=== PATIENT | female | born 1995 | race Caucasian/White ===

== ENCOUNTER 2017-10-03 21:41 | Emergency (ER) | payer MEDICAID ==
[~2017-10-03] VITALS: Ht 154.9 cm; Wt 49.0 kg
[~2017-10-03 21:41] MED LIST: NITR100C11 PO; NITR100C6 PO
[2017-10-03 21:54] VITALS: BP 119/88
== END 2017-10-04 01:26 | disposition left against medical advice (07) ==
LOC: ER 21:43
DX: K08.89 Other specified disorders of teeth and supporting structures (principal); Z53.21 Procedure and treatment not carried out due to patient leaving prior to being seen by health care provider

== ENCOUNTER 2017-10-04 05:48 | Emergency (ER) | payer MEDICAID ==
[2017-10-04 05:52] VITALS: BP 119/81
[2017-10-04 07:23] LABS: CLARITY,URINE SLIGHTLY CLOUDY (Clear); COLOR,URINE YELLOW (Yellow); GLUCOSE, URINE NEGATIVE (Neg); KETONES,URINE NEGATIVE (Neg); LEUKOCYTE ESTERASE ,URINE SMALL (Neg); NITRITES, URINE NEGATIVE (Neg); OCCULT BLOOD,URINE SMALL (Neg); PROTEIN,URINE TRACE mg/dl (Neg); UROBILINOGEN,URINE 0.2 E.U/dL (0.2-1.0)
[2017-10-04 07:24] LABS: UA COLLECTION TYPE CLN CATCH MIDSTREAM
[2017-10-04 07:27] LABS: URINE HCG NEGATIVE (NEG)
[2017-10-04 07:31] LABS: BACTERIA,URINE 2+ /HPF (Neg); MUCUS STRANDS NONE SEEN /LPF (Neg); SQUAMOUS EPITHELIAL CELL,UR MANY /LPF (FEW); YEAST FEW /HPF (NEGATIVE)
== END 2017-10-04 08:56 | disposition left against medical advice (07) ==
LOC: ER 05:48
DX: N89.8 Other specified noninflammatory disorders of vagina (principal); Z53.21 Procedure and treatment not carried out due to patient leaving prior to being seen by health care provider
CPT/HCPCS: 36415; 81001; 81025; 87491; 99281

== ENCOUNTER 2021-03-25 15:22 | Emergency (ER) | payer MEDICAID ==
[~2021-03-25] VITALS: Ht 152.4 cm; Wt 50.9 kg
[2021-03-25 15:27] VITALS: BP 107/77
[2021-03-25 16:07] LABS: URINE HCG NEGATIVE (NEG)
[2021-03-25 16:19] LABS: CLARITY,URINE TURBID (Clear); COLOR,URINE STRAW (Yellow); UA COLLECTION TYPE VOIDED
[2021-03-25] MEDS ORDERED: CefTRIAXone 1000mg IM Kit (w/lidocaine diluent) IM STA (16:19)
[2021-03-25 16:20] LABS: GLUCOSE, URINE NEGATIVE (Neg); KETONES,URINE NEGATIVE (Neg); LEUKOCYTE ESTERASE ,URINE MODERATE (Neg); NITRITES, URINE NEGATIVE (Neg); OCCULT BLOOD,URINE NEGATIVE (Neg); PROTEIN,URINE NEGATIVE (Neg); UROBILINOGEN,URINE 0.2 E.U/dL (0.2-1.0)
[2021-03-25] MEDS ORDERED: DOXY-411 PO (16:20)
[2021-03-25 16:21] LABS: SQUAMOUS EPITHELIAL CELL,UR MANY /LPF (FEW)
[2021-03-25 16:22] LABS: AMORPHOUS PHOSPHATES 4+; MUCUS STRANDS MANY /LPF (Neg)
[2021-03-25 16:24] LABS: BACTERIA,URINE 4+ /HPF (Neg)
[2021-03-25 16:26] LABS: RBC,URINE 0-2 /HPF (0-2)
[2021-03-25] MEDS ORDERED: METR-159 PO (16:26)
== END 2021-03-25 16:38 | disposition home or self-care (01) ==
LOC: ER 15:23
DX: A64 Unspecified sexually transmitted disease (principal); J45.909 Unspecified asthma, uncomplicated; F41.9 Anxiety disorder, unspecified; F15.10 Other stimulant abuse, uncomplicated; F14.10 Cocaine abuse, uncomplicated; Z56.0 Unemployment, unspecified; Z88.0 Allergy status to penicillin; Z79.899 Other long term (current) drug therapy
CPT/HCPCS: 36415; 81001; 81025; 86592; 87210; 87491; 87591; 96372; 99284; J0696; 99283

== ENCOUNTER 2021-08-07 15:38 | Emergency (ER) | payer SELFPAY ==
[~2021-08-07] VITALS: Ht 152.4 cm; Wt 50.0 kg
[~2021-08-07 15:38] MED LIST changes: +DOXYCYCLINE 100MG CAPSULE PO ONE
[2021-08-07 16:18] LABS: URINE HCG NEGATIVE (NEG)
[2021-08-07 16:21] LABS: CLARITY,URINE SLIGHTLY CLOUDY (Clear); COLOR,URINE YELLOW (Yellow); GLUCOSE, URINE NEGATIVE (Neg); KETONES,URINE NEGATIVE (Neg); LEUKOCYTE ESTERASE ,URINE NEGATIVE (Neg); NITRITES, URINE NEGATIVE (Neg); OCCULT BLOOD,URINE NEGATIVE (Neg); PROTEIN,URINE NEGATIVE (Neg); UA COLLECTION TYPE VOIDED; UROBILINOGEN,URINE 0.2 E.U/dL (0.2-1.0)
[2021-08-07 16:26] LABS: BACTERIA,URINE 1+ /HPF (Neg); MUCUS STRANDS MODERATE /LPF (Neg); RBC,URINE NONE SEEN /HPF (0-2); SQUAMOUS EPITHELIAL CELL,UR MODERATE /LPF (FEW); WBC,URINE 0-4 /HPF (0-4)
[2021-08-07 16:26] LABS: BASOPHILS % (AUTO) 0.4 % (0-1); EOSINOPHILS # (AUTO) 0.2 X10'3 (0-0.9); EOSINOPHILS % (AUTO) 2.2 % (0-6); HEMATOCRIT 40.5 % (35.0-45.0); HEMOGLOBIN 14.1 g/dl (12.0-16.0); LYMPHOCYTES # (AUTO) 2.3 X10'3 (1.1-4.8); LYMPHOCYTES % (AUTO) 29.8 % (21-51); MEAN CORPUSCULAR HEMOGLOBIN 32.7 PG (27.0-31.0); MEAN CORPUSCULAR HGB CONC 34.7 g/dL (33.0-36.5); MEAN CORPUSCULAR VOLUME 94.2 FL (78-98); MEAN PLATELET VOLUME 7.1 FL (7.4-10.4); MONOCYTES # (AUTO) 0.6 X10'3 (0-0.9); MONOCYTES % (AUTO) 8.1 % (2-12); NEUTROPHILS # (AUTO) 4.6 X10'3 (1.8-7.7); NEUTROPHILS % (AUTO) 59.5 % (42-75); PLATELET COUNT 250 X10'3 (140-440); RED CELL DISTRIBUTION WIDTH 12.3 % (11.5-14.5); WHITE BLOOD COUNT 7.7 X10'3 (4.5-11.0)
[2021-08-07 16:38] LABS: ALANINE AMINOTRANSFERASE 59 U/L (12-78); ALBUMIN 3.9 G/DL (3.4-5.0); ALBUMIN/GLOBULIN RATIO 1.1 (1.1-1.5); ALKALINE PHOSPHATASE 52 IU/L (46-116); ANION GAP 6 (8-16); ASPARTATE AMINO TRANSFERASE 31 U/L (10-37); BILIRUBIN,TOTAL 0.2 MG/DL (0.1-1.0); BLOOD UREA NITROGEN 14 MG/DL (7-18); BUN/CREATININE RATIO 15.6 (6.6-38.0); CALCIUM 8.6 MG/DL (8.5-10.1); CHLORIDE 105 MMOL/L (99-107); GLUCOSE 80 MG/DL (70-104); LIPASE 132 U/L (73-393); POTASSIUM 4.3 MMOL/L (3.5-5.1); SODIUM 139 MMOL/L (135-145); TOTAL CARBON DIOXIDE 28.5 MMOL/L (24-32); TOTAL PROTEIN 7.6 G/DL (6.4-8.2); eGFR 76 ML/MIN
[2021-08-07] MEDS ORDERED: CefTRIAXone 1000mg IM Kit (w/lidocaine diluent) IM ONE (18:00)
[2021-08-07] MEDS ORDERED: DOXYCYCLINE 100MG CAPSULE PO ONE (18:11)
[2021-08-07] MEDS ORDERED: DOXY100T56 PO (18:31)
[2021-08-07 18:44] VITALS: BP 118/68
== END 2021-08-07 18:46 | disposition home or self-care (01) ==
LOC: ER 15:39
DX: A64 Unspecified sexually transmitted disease (principal); J45.909 Unspecified asthma, uncomplicated; F15.90 Other stimulant use, unspecified, uncomplicated; F11.90 Opioid use, unspecified, uncomplicated; Z87.440 Personal history of urinary (tract) infections; Z56.0 Unemployment, unspecified; Z88.0 Allergy status to penicillin; Z79.2 Long term (current) use of antibiotics; Z79.899 Other long term (current) drug therapy
CPT/HCPCS: 36415; 80053; 81001; 81025; 83690; 85025; 96372; 99283; J0696

== ENCOUNTER 2024-06-08 11:19 | Emergency (ER) | payer MEDICAID ==
[~2024-06-08] VITALS: Ht 154.9 cm; Wt 55.4 kg
[~2024-06-08 11:19] MED LIST changes: -DOXYCYCLINE 100MG CAPSULE PO ONE
[2024-06-08 11:27] VITALS: BP 126/79; PULSE 94; RESP 16; TEMP 98.1; O2SAT 98
[2024-06-08 14:41] LABS: STREP A SCREEN NEGATIVE (Neg)
[2024-06-08] MEDS ORDERED: PRED20TA PO (15:02)
== END 2024-06-08 15:14 | disposition home or self-care (01) ==
LOC: ER 11:20
DX: J02.9 Acute pharyngitis, unspecified (principal); J45.909 Unspecified asthma, uncomplicated; F41.9 Anxiety disorder, unspecified; F15.90 Other stimulant use, unspecified, uncomplicated; F11.90 Opioid use, unspecified, uncomplicated; Z88.0 Allergy status to penicillin
CPT/HCPCS: 87081; 87880; 99283

== ENCOUNTER 2024-07-01 18:37 | Emergency (ER) | payer MEDICAID ==
[~2024-07-01] VITALS: Ht 154.9 cm; Wt 56.0 kg
[~2024-07-01 18:37] MED LIST changes: +PRED20TA PO
[2024-07-01 18:56] VITALS: TEMP 99.1
[2024-07-01 19:35] LABS: ALANINE AMINOTRANSFERASE 16 U/L (12-78); ALBUMIN 4.1 G/DL (3.4-5.0); ALKALINE PHOSPHATASE 76 IU/L (46-116); ANION GAP 6 (8-16); ASPARTATE AMINO TRANSFERASE 14 U/L (10-37); BILIRUBIN,TOTAL 0.3 MG/DL (0.1-1.0); BLOOD UREA NITROGEN 14 MG/DL (7-18); BUN/CREATININE RATIO 16.7 (10.0-20.0); CALCIUM 9.4 MG/DL (8.5-10.1); CHLORIDE 102 MMOL/L (99-107); CREATININE 0.84 MG/DL (0.40-0.90); GLUCOSE 116 MG/DL (70-104); LIPASE 56 U/L (16-77); POTASSIUM 3.8 MMOL/L (3.5-5.1); SODIUM 139 MMOL/L (135-145); TOTAL CARBON DIOXIDE 30.7 MMOL/L (24-32); TOTAL PROTEIN 8.4 G/DL (6.4-8.2); eCRCL 75 ML/MIN; eGFR 81 ML/MIN
[2024-07-01 19:42] LABS: BILIRUBIN,URINE NEGATIVE (Neg); CLARITY,URINE SLIGHTLY CLOUDY (Clear); COLOR,URINE YELLOW (Yellow); GLUCOSE, URINE NEGATIVE (Neg); KETONES,URINE NEGATIVE (Neg); LEUKOCYTE ESTERASE ,URINE NEGATIVE (Neg); NITRITES, URINE NEGATIVE (Neg); OCCULT BLOOD,URINE NEGATIVE (Neg); PH,URINE 5.5 (4.8-8.0); PROTEIN,URINE NEGATIVE (Neg); UROBILINOGEN,URINE 0.2 E.U/dL (0.2-1.0)
[2024-07-01 19:44] LABS: URINE HCG NEGATIVE (NEG)
[2024-07-01 19:48] LABS: UA COLLECTION TYPE CLN CATCH MIDSTREAM
[2024-07-01 19:50] LABS: BACTERIA,URINE 3+ /HPF (Neg); RBC,URINE NONE SEEN /HPF (0-2); SQUAMOUS EPITHELIAL CELL,UR MANY /LPF (FEW); WBC,URINE 0-4 /HPF (0-4)
[2024-07-01 19:57] LABS: BASOPHILS % (AUTO) 0.4 % (0-1); EOSINOPHILS # (AUTO) 0.2 X10'3 (0-0.9); EOSINOPHILS % (AUTO) 2.4 % (0-6); HEMATOCRIT 42.2 % (35.0-45.0); HEMOGLOBIN 14.9 g/dl (12.0-16.0); LYMPHOCYTES # (AUTO) 2.4 X10'3 (1.1-4.8); LYMPHOCYTES % (AUTO) 24.5 % (21-51); MEAN CORPUSCULAR HEMOGLOBIN 33.4 PG (27.0-31.0); MEAN CORPUSCULAR HGB CONC 35.3 g/dL (33.0-36.5); MEAN CORPUSCULAR VOLUME 94.7 FL (78-98); MEAN PLATELET VOLUME 7.8 FL (7.4-10.4); MONOCYTES # (AUTO) 0.6 X10'3 (0-0.9); NEUTROPHILS # (AUTO) 6.4 X10'3 (1.8-7.7); NEUTROPHILS % (AUTO) 66.7 % (42-75); PLATELET COUNT 270 X10'3 (140-440); RED BLOOD COUNT 4.46 X10'6 (4.20-5.60); RED CELL DISTRIBUTION WIDTH 12.3 % (11.5-14.5); WHITE BLOOD COUNT 9.6 X10'3 (4.5-11.0)
[2024-07-01 20:54] VITALS: PULSE 89
[2024-07-01] MEDS: azithromycin 250mg tablet PO ONE (22:02)
[2024-07-01] MEDS: CefTRIAXone/D5W-Rocephin 1gm 50 ML IV ONE (22:02)
[2024-07-01] MEDS ORDERED: iohexol 300mg/ml 100ml inj. ONE (22:08)
[2024-07-01] MEDS: metroNIDAZOLE 500mg tablet PO ONE (23:53)
[2024-07-02 00:02] VITALS: BP 111/62; RESP 18; O2SAT 99
== END 2024-07-02 00:07 | disposition home or self-care (01) ==
LOC: ER 18:37
DX: A64 Unspecified sexually transmitted disease (principal); R10.31 Right lower quadrant pain; R10.2 Pelvic and perineal pain; J45.909 Unspecified asthma, uncomplicated; F41.9 Anxiety disorder, unspecified; F17.210 Nicotine dependence, cigarettes, uncomplicated; F12.90 Cannabis use, unspecified, uncomplicated; Z88.0 Allergy status to penicillin; F15.90 Other stimulant use, unspecified, uncomplicated
CPT/HCPCS: 36415; 74177; 80053; 81001; 81025; 83690; 85025; 96365; 99285; J0696; Q9967

== ENCOUNTER 2024-10-11 18:23 | Emergency (ER) | payer MEDICAID ==
[~2024-10-11] VITALS: Ht 154.9 cm; Wt 138.8 kg
[~2024-10-11 18:23] MED LIST changes: -PRED20TA PO
[2024-10-11 19:10] LABS: ALANINE AMINOTRANSFERASE 11 U/L (12-78); ALBUMIN 3.1 G/DL (3.4-5.0); ALBUMIN/GLOBULIN RATIO 0.8 (1.1-1.5); ALKALINE PHOSPHATASE 60 IU/L (46-116); ANION GAP 7 (8-16); ASPARTATE AMINO TRANSFERASE 14 U/L (10-37); BILIRUBIN,TOTAL 0.3 MG/DL (0.1-1.0); BLOOD UREA NITROGEN 9 MG/DL (7-18); CALCIUM 8.4 MG/DL (8.5-10.1); CHLORIDE 105 MMOL/L (99-107); GLUCOSE 136 MG/DL (70-104); LIPASE 37 U/L (16-77); POTASSIUM 3.8 MMOL/L (3.5-5.1); SODIUM 137 MMOL/L (135-145); TOTAL CARBON DIOXIDE 25.3 MMOL/L (24-32); TOTAL PROTEIN 6.8 G/DL (6.4-8.2); eCRCL 105 ML/MIN; eGFR > 90 ML/MIN
[2024-10-11 20:29] LABS: BILIRUBIN,URINE NEGATIVE (Neg); CLARITY,URINE SLIGHTLY CLOUDY (Clear); COLOR,URINE YELLOW (Yellow); GLUCOSE, URINE NEGATIVE (Neg); KETONES,URINE NEGATIVE (Neg); LEUKOCYTE ESTERASE ,URINE MODERATE (Neg); NITRITES, URINE NEGATIVE (Neg); OCCULT BLOOD,URINE TRACE-INTACT (Neg); PROTEIN,URINE NEGATIVE (Neg); UROBILINOGEN,URINE 0.2 E.U/dL (0.2-1.0)
[2024-10-11 20:32] LABS: URINE HCG POSITIVE (NEG)
[2024-10-11 20:35] LABS: UA COLLECTION TYPE VOIDED
[2024-10-11 20:38] LABS: BASOPHILS % (AUTO) 0.1 % (0-1); EOSINOPHILS # (AUTO) 0.2 X10'3 (0-0.9); EOSINOPHILS % (AUTO) 1.6 % (0-6); HEMATOCRIT 37.6 % (35.0-45.0); LYMPHOCYTES # (AUTO) 1.8 X10'3 (1.1-4.8); LYMPHOCYTES % (AUTO) 13.1 % (21-51); MEAN CORPUSCULAR HEMOGLOBIN 32.3 PG (27.0-31.0); MEAN CORPUSCULAR HGB CONC 34.6 g/dL (33.0-36.5); MEAN CORPUSCULAR VOLUME 93.3 FL (78-98); MEAN PLATELET VOLUME 8.1 FL (7.4-10.4); MONOCYTES # (AUTO) 0.6 X10'3 (0-0.9); MONOCYTES % (AUTO) 4.6 % (2-12); NEUTROPHILS # (AUTO) 11.1 X10'3 (1.8-7.7); NEUTROPHILS % (AUTO) 80.6 % (42-75); PLATELET COUNT 219 X10'3 (140-440); RED BLOOD COUNT 4.02 X10'6 (4.20-5.60); RED CELL DISTRIBUTION WIDTH 12.4 % (11.5-14.5); WHITE BLOOD COUNT 13.8 X10'3 (4.5-11.0)
[2024-10-11 20:47] LABS: WBC,URINE 20-30 /HPF (0-4)
[2024-10-11 20:48] LABS: BACTERIA,URINE 1+ /HPF (Neg); MUCUS STRANDS FEW /LPF (Neg); RBC,URINE 0-2 /HPF (0-2); SQUAMOUS EPITHELIAL CELL,UR FEW /LPF (FEW)
--- NOTE | 2024-10-11 22:06 | Physician Documentation ---
History of Present Illness Chief Complaint: Abdominal Pain Stated Complaint: ABDOMINAL PAIN Time Seen by MD: 22:00 OK to notify your PCP?: Yes Primary Medical Doctor: [facility] Source: patient, RN/MD, RN notes reviewed, old records Mode of Arrival: POV Exam Limitations: no limitations HPI 28 old female, who is approximately three months , presents to the ED complaining of lower abdominal pain for the last two days. Pain is rated 7/10 at this time. She also describes severe constipation recently and pressure when she urinates. She was taken some stool softeners without improvement of constipation. She denies any nausea, vomiting, or fever. She was a history of urinary tract infections, previously treated with Macrobid. She is taking vitamins. Medication Reconciliation Allergies: Coded Allergies: Penicillins (Verified Allergy, Intermediate, HIVES, 10/11/24) Scheduled Cephalexin*Monohydrate* (Keflex*), 1 CAP PO BID Nitrofurantoin Monohyd/M-Cryst (Macrobid 100 mg Capsule), 1 CAP PO Q12H Nitrofurantoin/Nitrofuran Mac (Nitrofurantoin [place]-Mcr 100 Mg), 1 CAP PO BID Past Medical History Past Medical History: Asthma, UTI, *INFECTIOUS DZ*, Anxiety Past Surgical History: no surgical history Alcohol Use: None Drug Use: methamphetamine, heroin Lives with: S/O Lives In: Home Occupation: unemployed Review of Systems All Other Systems at this time: Reviewed and Negative ROS As stated above in the HPI, otherwise all systems are reviewed and negative. Physical Exam Vital Signs: RN Vital Signs have been reviewed: Yes, Heart Rate: 81, Respirat ory Rate: 16, BP: 97/53, Pulse Oximetry: 100, Weight: 138.820 Oxygen Flow Rate: 0 Pulse Oximetry Reflects: adequate oxygenation Physical Exam General: The patient is well developed, well nourished, nontoxic appearing and is in no acute distress. Skin: [place], warm and dry with no rashes. HEENT: Head was normocephalic and atraumatic. Chest: Clear to auscultation bilaterally without wheezes, rales or rhonchi. No accessory muscle use. No dullness to percussion. Heart: Rate regular and rhythmic. S1, S2. No murmurs. Palpation of the chest wall was normal. No rubs or thrills. Abdomen: Gravid abdomen. Soft, nontender. Positive bowel sounds. No guarding or rebound. Back: No CVA TTP bilaterally. Extremities: No cyanosis, clubbing or edema. The patient moves all extremities. Pulses were equal and symmetric. Neurologic: Motor and sensation grossly intact. Cranial nerves II-XII grossly intact. A & O x4. Psychologic: Normal mood and affect. No agitation. Progress Results/Orders Reviewed/noted all lab results: Yes Results/Orders Orders - SO MCGINNIS MD Straight Cath For Urine Sample (10/11/24 18:36) Cult Urine + [place] [address] (10/11/24 20:49) Completed Orders - SO MCGINNIS MD Hcg, Ur Ql (10/11/24 18:36) Cbc/Diff (10/11/24 18:36) BMP (10/11/24 18:36) Lipase (10/11/24 18:36) CMP (10/11/24 18:36) Ua W/Microscopic, Cult If Ind (10/11/24 20:15) Vital Signs 10/11/24 10/11/24 10/11/24 18:28 20:41 20:41 Pulse 92 81 Resp 20 16 B/P (MAP) 112/63 97/53 (68) Pulse Ox 100 100 O2 Flow Rate 0 0 Laboratory Tests Test 10/11/24 18:47 10/11/24 20:15 White Blood Count 13.8 H Red Blood Count 4.02 L Hemoglobin 13.0 Hematocrit 37.6 Mean Corpuscular Volume 93.3 Mean Corpuscular Hemoglobin 32.3 H Mean Corpuscular Hemoglobin Concent 34.6 Red Cell Distribution Width 12.4 Platelet Count 219 Mean Platelet Volume 8.1 Neutrophils (%) (Auto) 80.6 H Lymphocytes (%) (Auto) 13.1 L Monocytes (%) (Auto) 4.6 Eosinophils (%) (Auto) 1.6 Basophils (%) (Auto) 0.1 Neutrophils # (Auto) 11.1 H Lymphocytes # (Auto) 1.8 Monocytes # (Auto) 0.6 Eosinophils # (Auto) 0.2 Basophils # (Auto) 0.0 CBC Comment Sodium Level 137 Potassium Level 3.8 Chloride Level 105 Carbon Dioxide Level 25.3 Anion Gap 7 L Blood Urea Nitrogen 9 Creatinine 0.60 Estimated GFR/1.73 m2 > 90 BUN/Creatinine Ratio 15.0 Glucose Level 136 H Calcium Level 8.4 L Total Bilirubin 0.3 Aspartate Amino Transf (AST/SGOT) 14 Alanine Aminotransferase (ALT/SGPT) 11 L Alkaline Phosphatase 60 Total Protein 6.8 Albumin 3.1 L Globulin 3.7 Albumin/Globulin Ratio 0.8 L Lipase 37 Chemistry Comments Urine Specimen Description Voided Urine Color Yellow Urine Clarity Slightly cloudy Urine pH 6.0 Urine Specific [place] 1.020 Urine Protein Negative Urine Glucose (UA) Negative Urine Ketones Negative Urine Occult Blood Trace-intact Urine Nitrite Negative Urine Bilirubin Negative Urine Urobilinogen 0.2 Urine Leukocyte Esterase Moderate H Urine RBC 0-2 Urine WBC 20-30 H Urine Squamous Epithelial Cells Few Urine Bacteria 1+ Urine Mucus Few Urine Culture Indicated Indicated Volume Urine Centrifuged 10 ml Urine HCG, Qualitative Positive Urine Comment Microbiology Date/Time Source Procedure Growth Status 10/11/24 20:49 Urine Voided Urine Culture - Preliminary Culture received. Resulted Departure Time of Disposition: 22:15 Disposition: 01 HOME / SELF CARE / HOMELESS Impression: Primary Impression: UTI in Qualified Codes: O23.41 - Unspecified infection of urinary tract in , first trimester Condition: Stable Discharge Instructions: and Urinary Tract Infection Additional Instructions: Take full course of antibiotics as prescribed. Follow up with your OBGYN and regular doctor. Plenty of fluids. Return to the ER for worsening abdominal pain, abdominal cramping, fever, vomiting, or any other concerns. Prescriptions Cephalexin*Monohydrate* (Keflex*) 250 Mg Capsule 1 CAP PO BID for 7 Days, #14 CAP Prov: SO MCGINNIS MD 10/11/24 Education Educated: Patient, Family Educated regarding: diagnosis, treatment, need for follow up Signature Scribe Signature: Scribed for So Mcginnis MD by Luigi Spears . 10/11/24 22:10 Attestation: The note accurately reflects work and decisions made by me.So Mcginnis MD 10/11/24 22:06 SO MCGINNIS MD October 11, 2024 22:06 LUIGI TRAN October 11, 2024 22:15
[2024-10-11] MEDS ORDERED: CEPH250T PO (22:13)
[2024-10-11] MEDS: CefTRIAXone 1000mg IM Kit (w/lidocaine diluent) IM ONE (22:22)
[2024-10-11 22:23] VITALS: BP 131/78; PULSE 72; RESP 16; O2SAT 100
== END 2024-10-11 22:25 | disposition home or self-care (01) ==
LOC: ER 18:24
DX: O23.41 Unspecified infection of urinary tract in pregnancy, first trimester (principal); N39.0 Urinary tract infection, site not specified; J45.909 Unspecified asthma, uncomplicated; K59.00 Constipation, unspecified; F15.90 Other stimulant use, unspecified, uncomplicated; F11.90 Opioid use, unspecified, uncomplicated; F41.9 Anxiety disorder, unspecified; Z88.0 Allergy status to penicillin; Z79.899 Other long term (current) drug therapy; Z56.0 Unemployment, unspecified; Z3A.01 Less than 8 weeks gestation of pregnancy
CPT/HCPCS: 36415; 80053; 81001; 81025; 83690; 85025; 87088; 96372; 99283; J0696

== ENCOUNTER 2024-12-24 14:26 | Outpatient (CLI) | payer MEDICAID ==
--- NOTE | 2024-12-25 02:19 | RADIOLOGY REPORT ---
LIMITED SURVEY CLINICAL HISTORY: RELATED CONDITIONS, FIRST TRIMESTER COMPARISON: None TECHNIQUE: Grayscale, color flow and spectral Doppler imaging of the pelvis is performed. FINDINGS: Uterus measures approximately 10 x 5.5 x 6.4 cm. Intrauterine gestational sac is identified. Yolk sac is noted, however, a pole is not clearly visualized. Mean gestational sac diameter 1.5 cm. Th is would correspond to an approximately 5 week 5 day size gestation. Ultrasound estimated due date 08/21/2025. Hypoechoic structure adjacent to the gestational sac measuring approximately 6.6 x 1.2 cm most likely reflecting a subchorionic hematoma. The right ovary measures 2.6 x 1.7 x 1.4 cm. The left ovary measures 2.6 x 1.8 x 1.7 cm. Both ovarie s demonstrate dopplerable blood flow on spectral analysis. Trace free fluid in the cul-de-sac. IMPRESSION: Approximately 5 week, 5 day sized intrauterine gestational sac with a yolk sac. pole not identi fied at this time. Presumed large subchorionic hematoma. Differential diagnosis in the setting includes early viable as well as failure/in complete miscarriage. Recommend short-term interval follow-up as well as correlation with serial beta HCG testing. HS:Y
== END 2024-12-24 23:59 | disposition home or self-care (01) ==
LOC: RAD 14:26
PROVIDERS: ATTEND Family Medicine
DX: O26.91 Pregnancy related conditions, unspecified, first trimester (principal); Z3A.01 Less than 8 weeks gestation of pregnancy
CPT/HCPCS: 76801; 76817; 93976

== ENCOUNTER 2025-03-28 14:51 | Emergency (ER) | payer MEDICAID, SELFPAY ==
[~2025-03-28] VITALS: Ht 154.9 cm; Wt 58.2 kg
[2025-03-28 15:19] VITALS: BP 127/84; PULSE 86; RESP 16; TEMP 97.9; O2SAT 95
--- NOTE | 2025-03-28 16:32 | Physician Documentation ---
History of Present Illness ~ Chief Complaint: Abscess Stated Complaint: EAR PAIN Time Seen by MD: 15:42 Primary Medical Doctor: [facility] HPI This is a 28-year-old female that presents to the emergency department for evaluation of sores to various areas of her body. Wounds are not consistent with abscess at this time. Patient does have small pustules in a few other places and she would like to have evaluated also. Patient is a small pustules in the external ears and right of the ear canal 1 on her side and 1 just below her right gluteal fold. Patient reports he has an allergy to penicillin. Patient denies fever chills nausea vomiting diarrhea or any other symptoms at this time. Tetanus Within 5 Years: Yes Medication Reconciliation Allergies: Coded Allergies: Penicillins (Verified Allergy, Intermediate, HIVES, 03/28/25) Scheduled Nitrofurantoin Monohyd/M-Cryst (Macrobid 100 mg Capsule), 1 CAP PO Q12H Nitrofurantoin/Nitrofuran Mac (Nitrofurantoin [place]-Mcr 100 Mg), 1 CAP PO BID Past Medical History Past Medical History: Asthma, UTI, *INFECTIOUS DZ*, Anxiety Past Surgical History: no surgical history Alcohol Use: None Drug Use: methamphetamine, heroin Lives with: S/O Lives In: Home Occupation: unemployed Review of Systems ROS As stated above in the HPI, otherwise all systems are reviewed and negative. Physical Exam Vital Signs: Temperature: 97.9, Source: Temporal, Heart Rate: 86, Respiratory Rate: 16, BP: 127/84, Pulse Oximetry: 95, Weight: 58.200 Oxygen Flow Rate: 0 Physical Exam VITALS: Reviewed and as above. GENERAL: Alert, no apparent distress. SKIN: Warm and dry, multiple pustules mild rash to different areas of the body no significant erythema swelling or drainage noted at this time. NEURO: Oriented x4, No motor or sensory deficit PSYCH: Normal mood and affect, no agitation Progress Results/Orders Results/Orders Vital Signs 03/28/25 15:19 Temp 97.9 Pulse 86 Resp 16 B/P (MAP) 127/84 Pulse Ox 95 O2 Flow Rate 0 Medical Decision Making Additional information obtaine: other Findings This patient who presents with rash and multiple pustules throughout her body. History and exam findings not consistent with dangerous etiologies of rash such as SJS/TEN, or secondary dangerous causes such as petechial rashes from thrombocytopenia or rickettsial infections. Rash does not appear urticarial with no signs of anaphylaxis either. Plan at this time is to treat symptomatically, instruct to follow up with PCP or derm PRN. Patient will be prescribed course of clindamycin as she is allergic to penicillins. Patient will follow up with the primary care provider. Patient will return to the emergency department with any worsening or recurrent symptoms or any additional concerning symptoms that we discussed here today. Differential Dx:Considerations: Include: Abscess, Bacteremia, Cellulitis, Erysipelas, Felon, Gas gangrene, Hidrademitis suppurativa, Impetigo, Lymphangitis, Osteromyelitis, Paronychia, Septicemia, Other Departure Disposition: 01 HOME / SELF CARE / HOMELESS Impression: Primary Impression: Wound Additional Impressions: Rash Pustule Condition: Stable Discharge Instructions: Rash, Adult Additional Instructions: This patient who presents with rash and multiple pustules throughout her body. History and exam findings not consistent with dangerous etiologies of rash such as SJS/TEN, or secondary dangerous causes such as petechial rashes from thrombocytopenia or rickettsial infections. Rash does not appear urticarial with no signs of anaphylaxis either. Plan at this time is to treat symptomatically, instruct to follow up with PCP or derm PRN. Patient will be prescribed course of clindamycin as she is allergic to penicillins. Patient will follow up with the primary care provider. Patient will return to the emergency department with any worsening or recurrent symptoms or any additional concerning symptoms that we discussed here today. Referrals: NO PRIMARY CARE PROVIDER (PCP) Prescriptions Clindamycin HCl (Clindamycin HCl) 300 Mg Capsule 1 CAP PO Q8H for 10 Days, #30 CAP Prov: JULEE KARIMI 03/28/25 Education Educated: Patient Educated regarding: diagnosis, treatment, need for follow up Signature Scribe Signature: A Attestation: Scribed for Julee Karimi by NICOLE [email or web address] . 03/28/25 16:35 JULEE KARIMI Mar 28, 2025 16:32
[2025-03-28] MEDS ORDERED: CLIN300C54 PO (16:35)
== END 2025-03-28 16:44 | disposition home or self-care (01) ==
LOC: ER 14:51
DX: S00.401A Unspecified superficial injury of right ear, initial encounter (principal); J45.909 Unspecified asthma, uncomplicated; F15.90 Other stimulant use, unspecified, uncomplicated; F11.90 Opioid use, unspecified, uncomplicated; X58.XXXA Exposure to other specified factors, initial encounter; Y93.89 Activity, other specified; Y92.89 Other specified places as the place of occurrence of the external cause; Y99.8 Other external cause status
CPT/HCPCS: 99283

== ENCOUNTER 2025-05-13 13:26 | Emergency (ER) | payer MEDICAID ==
[~2025-05-13] VITALS: Ht 154.9 cm; Wt 54.0 kg
[2025-05-13 13:35] VITALS: BP 105/69; PULSE 90; RESP 14; TEMP 98.4; O2SAT 100
[2025-05-13] MEDS ORDERED: TRAZ-251 PO (14:08)
[2025-05-13] MEDS ORDERED: BUPR1FIL7 SL (14:08)
--- NOTE | 2025-05-13 14:09 | Physician Documentation ---
History of Present Illness ~ Chief Complaint: Narcotic Withdrawl Stated Complaint: DETOX Time Seen by MD: 13:39 Primary Medical Doctor: [facility] HPI 29-year-old female presents to the ED from [facility] as she is currently withdrawing from fentanyl. She stating she is requesting to be placed on Suboxone to bridge her in order to go back to [facility]. In addition she is requesting trazodone to help with sleeping. Not very forthcoming regarding her desire to come clean as she states she is uncomfortable. Day of Onset: May 13, 2025 Medication Reconciliation Allergies: Coded Allergies: Penicillins (Verified Allergy, Intermediate, HIVES, 05/13/25) Scheduled Buprenorphine HCl/Naloxone HCl (Suboxone 12 mg-3 mg Sl Film), 1 STRIP SL DAILY Nitrofurantoin Monohyd/M-Cryst (Macrobid 100 mg Capsule), 1 CAP PO Q12H Nitrofurantoin/Nitrofuran Mac (Nitrofurantoin [place]-Mcr 100 Mg), 1 CAP PO BID Trazodone HCl (Trazodone HCl), 1 TAB PO HS Past Medical History Past Medical History: Asthma, UTI, *INFECTIOUS DZ*, Anxiety Past Surgical History: no surgical history Alcohol Use: None Drug Use: methamphetamine, heroin Lives with: S/O Lives In: Home Occupation: unemployed Review of Systems All Other Systems at this time: Reviewed and Negative ROS As stated above in the HPI, otherwise all systems are reviewed and negative. Physical Exam Vital Signs: Temperature: 98.4, Heart Rate: 90, Respiratory Rate: 14, BP: 105/69, Pulse Oximetry: 100, Weight: 54.000 Physical Exam General: Alert, no apparent distress. HEENT: PERRL, EOMI, no injection, moist mucous membranes. Neck: Full range of motion. Respiratory: Lungs clear, no respiratory distress. Chest: No accessory muscle use. Cardiovascular: Regular rate and rhythm, no murmurs. Gastrointestinal: Soft, nontender, nondistended. Bowels sounds present. Extremities: Normal range of motion, no deformity. Neurologic: Oriented x4. Psychiatric: Normal mood and affect. Skin: Normal color, warm and dry. No edema, no ecchymosis. Progress Results/Orders Results/Orders Vital Signs 05/13/25 05/13/25 13:31 13:35 Temp 98.4 Pulse 100 90 Resp 12 14 B/P (MAP) 132/80 105/69 (81) Pulse Ox 100 100 Medical Decision Making Additional information obtaine: old records Findings Read to starting the patient on Suboxone but she will need to get further scripts in the outpatient setting. I will give her a short dose of trazodone as well. I am going to medically clear her for [facility] Differential Dx:Considerations: Include: Alcohol withdrawl synd., Delerium tremens, Hallucinosis, Seizures, Anticholinergic poisoning, CVA, Dehydration, Depression, Drug induced psychosis, Electolyte imbalance, Encephalitis, Encephalopathy, Hepatitis, Hyperthermia, Intoxication-alcohol, Intoxication- other drug, Medical noncompliance, Personality disorder, Schizophrenia, Seizure disorder, Substance abuse disorder, Seizure disorder, Thiamine deficiency, Thyrotoxicosis, Other Departure Disposition: 01 HOME / SELF CARE / HOMELESS Impression: Primary Impression: Narcotic drug use Condition: Stable Discharge Instructions: Narcotic Withdrawal Additional Instructions: Medically cleared for [facility] Referrals: NO PRIMARY CARE PROVIDER (PCP) Prescriptions Trazodone HCl (Trazodone HCl) 50 Mg Tablet 1 TAB PO HS for 30 Days, #30 TAB 0 Refills Prov: NICK NARVAEZ NP 05/13/25 Buprenorphine HCl/Naloxone HCl (Suboxone 12 mg-3 mg Sl Film) 12 Mg-3 Mg Film 1 STRIP SL DAILY for 14 Days, #14 STRIP 0 Refills Prov: NICK NARVAEZ NP 05/13/25 Education Educated: Patient Signature Scribe Signature: g Attestation: Scribed for Nick Narvaez Np by Nick Donahue NP . 05/13/25 18:02 NICK NARVAEZ NP May 13, 2025 14:09
== END 2025-05-13 15:10 | disposition home or self-care (01) ==
LOC: ER 13:26
DX: F11.23 Opioid dependence with withdrawal (principal); F41.9 Anxiety disorder, unspecified; F15.90 Other stimulant use, unspecified, uncomplicated; Z88.0 Allergy status to penicillin; Z87.440 Personal history of urinary (tract) infections; Z79.899 Other long term (current) drug therapy; Z56.0 Unemployment, unspecified
CPT/HCPCS: 99283